=== PATIENT | female | born 1985 | race Two or more races ===

== ENCOUNTER 2024-04-13 14:07 | Emergency (ER) | payer OTHER ==
[~2024-04-13] VITALS: Ht 261.6 cm; Wt 90.7 kg
[2024-04-13 14:31] VITALS: BP 126/85; O2SAT 100
[2024-04-13] MEDS ORDERED: VERELAN PM100 MG PO (14:31)
[2024-04-13] MEDS ORDERED: BARIUM SULFATE 450 ML ORAL.SUSP PO ONE (15:10)
[2024-04-13 15:30] LABS: HEMATOCRIT 43.9 % (36.0-45.00); HEMOGLOBIN 14.4 g/dL (12.0-15.00); MEAN CELL VOLUME 84.2 fL (80.00-100.00); MEAN CORPUSCULAR HEMOGLOBIN 27.6 pg (27.00-32.0); MEAN CORPUSCULAR HGB CONC 32.8 g/dl (32.0-36.0); PLATELET COUNT 272 K/uL (150-450); RED BLOOD COUNT 5.21 M/uL (4.00-6.00); RED CELL DISTRIBUTION WIDTH 14.6 % (11.5-14.5)
[2024-04-13 15:49] LABS: CALCIUM 9.3 mg/dL (8.5-10.1); CREATININE SERUM 0.69 mg/dL (0.55-1.02); GFR 94.72; POTASSIUM 4.04 mEq/L (3.5-5.1)
[2024-04-13] MEDS ORDERED: KETOROLAC TROMETHAMINE 30 MG VIAL ONE (18:00)
[2024-04-13] MEDS ORDERED: KETOROLAC TROMETHAMINE 30 MG VIAL IV ONE (18:15)
[2024-04-13] MEDS ORDERED: ANALPRAM HC 2.530 GM RECTAL (20:48)
[2024-04-13] MEDS ORDERED: DICLOFENAC SODI75 MG PO (20:48)
== END 2024-04-13 20:55 | disposition home or self-care (01) ==
LOC: ER 14:10
PROVIDERS: Emergency Medicine
DX: K64.9 Unspecified hemorrhoids (principal); K62.5 Hemorrhage of anus and rectum; I10 Essential (primary) hypertension; Z88.0 Allergy status to penicillin; Z88.1 Allergy status to other antibiotic agents
CPT/HCPCS: 36415; 74177; Q9965